=== PATIENT | male | born 1965 | race African-American/Black ===

== ENCOUNTER 2018-03-22 16:29 | Emergency (ER) | payer OTHER ==
[2018-03-22] MEDS: ONDANSETRON (ODT) 4 MG TAB ODT (17:13)
[2018-03-22] MEDS: HYDROCODONE/APAP (10/325) TAB PO (17:13)
== END 2018-03-22 18:49 | disposition home or self-care (01) ==
LOC: E/R 16:29
DX: S09.90XA Unspecified injury of head, initial encounter (principal); S20.212A Contusion of left front wall of thorax, initial encounter; S40.012A Contusion of left shoulder, initial encounter; I10 Essential (primary) hypertension; V18.2XXA Unspecified pedal cyclist injured in noncollision transport accident in nontraffic accident, initial encounter; Y92.9 Unspecified place or not applicable
CPT/HCPCS: 70450; 71045; 73030; 99284-25